=== PATIENT | female | born 1980 | race Caucasian/White ===

== ENCOUNTER 2016-06-03 10:54 | Emergency (ER) | payer OTHER | END 2016-06-03 11:58 | disposition home or self-care (01) | LOC: ER 10:54 | DX: O99.519 Diseases of the respiratory system complicating pregnancy, unspecified trimester (principal); R05 Cough; J02.9 Acute pharyngitis, unspecified; Z88.2 Allergy status to sulfonamides | CPT/HCPCS: 99282 ==